=== PATIENT | male | born 1950 ===

== ENCOUNTER 2022-12-27 10:15 | Inpatient (IN) | payer OTHER ==
[~2022-12-27] VITALS: Ht 142.2 cm; Wt 72.6 kg
[2023-01-02] MEDS ORDERED: DUI500 PO (15:53)
[2023-01-02] MEDS ORDERED: PERCOCET 5-3251 EACH PO (15:53)
[2023-01-02] MEDS ORDERED: ELIQUIS2.5 MG PO (15:53)
== END 2023-01-02 20:21 | disposition home or self-care (01) | DRG 470 ==
LOC: MEDJ 12-31 06:00 → O/R 12-31 06:00 → SURG 12-31 10:15 → MEDJ 12-31 22:41
PROVIDERS: ADMIT Orthopaedic Surgery; ATTEND Orthopaedic Surgery
PROC: 0SRD0J9 Replacement of Left Knee Joint with Synthetic Substitute, Cemented, Open Approach (ICD-10-PCS; principal; 2022-12-31 18:15)
DX: M17.12 Unilateral primary osteoarthritis, left knee (principal); M22.12 Recurrent subluxation of patella, left knee